=== PATIENT | female | born 2000 | race Caucasian/White ===

== ENCOUNTER → 2023-03-14 | Outpatient (CLI) | payer OTHER, SELFPAY ==
[2023-03-14 15:23] LABS: Absolute Lymphocyte Count 1.21 X10^3/uL (0.83-4.51); Absolute Neutrophil Count 4.5 X10^3/uL (2.0-7.7); Basophil# 0.02 X10^3/uL; Basophil% 0.3 % (0-1); Eosinophil# 0.07 X10^3/uL; Eosinophils% 1.1 % (0-5); Hematocrit 45.5 % (37-47); Hemoglobin 14.6 g/dL (12.0-15.0); Lymphocyte # 1.21 X10^3/ul (0.83-4.51); Lymphocyte % 19.3 % (19-41); Mean Corp Hgb Conc 32.1 g/dL (32-36); Mean Corpuscular Hgb 27.8 pg (27.0-32.0); Mean Corpuscular Volume 86.7 fL (81-99); Mean Platelet Vol. 10.1 fl (6.2-12.0); Monocyte# 0.47 X10^3/uL; Monocyte% 7.5 % (0-10); NRBC Flagged by Analyzer 0 % (0-5); Neutrophil # 4.48 X10^3/uL (2.7-7.7); Neutrophil % 71.5 % (47-70); Platelet Count 307 K/mm3 (150-450); RBC Distribution Width CV 12.6 % (11.6-14.6); RBC Distribution Width SD 39.8 fl (35.1-43.9); Red Blood Count 5.25 M/mm3 (4.2-5.4); White Blood Count 6.3 K/mm3 (4.4-11.0)
[2023-03-14 16:11] LABS: Hemoglobin A1c 4.9 % (3.8-5.6)
[2023-03-14 16:16] LABS: Cholesterol 163 mg/dL (200); High Density Lipoprotein 49 mg/dL; Rheumatoid Factor < 10.0 IU/mL (<15); T4 Free Direct 0.94 ng/dL (0.76-1.46); Thyroid Stim Hormone (TSH) 0.69 uIU/mL (0.358-3.74); Triglycerides 102 mg/dL; Very Low Density Lipoprotein 20 mg/dL (5-40)
[2023-03-17 14:08] LABS: ANTINUCLEAR ANTIBODIES DIRECT Negative (Negative)
[2023-03-17 15:07] LABS: Deamidated Gliadin IgA 9 units (0-19); Deamidated Gliadin IgG 3 units (0-19); Endomysial Antibody IgA Negative (Negative); Immunoglobulin A 261 mg/dL (87-352); t-Transglutaminase IgA <2 U/mL (0-3)
== END | disposition home or self-care (01) ==
LOC: BIMLAB 13:38
PROVIDERS: PCP Nurse Practitioner; Referring Provider Nurse Practitioner; Visit Provider Nurse Practitioner
DX: M25.50 Pain in unspecified joint (principal); Z76.89 Persons encountering health services in other specified circumstances; R63.5 Abnormal weight gain
CPT/HCPCS: 36415; 80061; 82784; 83036; 83516; 84439; 84443; 85025; 86038; 86225; 86235; 86255; 86431

== ENCOUNTER 2023-07-22 08:00 | Outpatient (RCR) | payer OTHER, SELFPAY ==
--- NOTE | 2023-03-28 09:11 | HP.PTEVAL ---
Patient's Visit Information Visit Information Visit Information: TRAVIS FLOREZ is a 22 year old F referred to Physical Therapy by YOSHI Urbina with a diagnosis of B knee pain. Date of Evaluation: 03/28/23 Physical Therapist: LINDA Fairchild Visit Plan Frequency: 1x/Week Duration: 2 Months Plan: 1X/ week for up to 8 weeks (due to pt being away at school) for B hip and knee strengthening with HEP HEP: bridges, clam shells and SLR B, Heel slides, and standing heel and toe raises Subjective Subjective: Pt has pain in B knees with the R being worse. Pt reports that since her sophomore in she played soccer and would constantly land on her knees and then in college it got worse to the point she could not bend or straighten her knees. She works at [employer] and throughout the day it would gets worse. She is at [email or web address] (studying history education). Her knees do not swell but does not know what a normal knee looks like. Stairs bother her slightly. Getting up out of a chair is ok... somedays she has to push herself up. She has no night pain while she is sleeping. She does not exercise. Her knee has given out in the past just standing but not recently. Pain R knee pain: Pain Intensity (Out of 10): 0 L knee pain: Pain Intensity (Out of 10): 0 Objective Objective: Gait: decrease stride length HEEL and TOE raises: increase pain in the front of the knee pain on the R when walking on her heels LE MMT: R hip flex 15 and L hip flex 15.5 R knee ext 16.6 and L 14.8 R knee flex 10.3 and L 12.1 R hip abd 11.8 and L 16.8 R hip ext 8.2 and L 8.6 Bridge: 3/4 normal ROM R knee AROM -2 tp 105 amd L knee -12 to 112 Balance/Special Test Scores Lower Extremity Functional Score: 57 Goals Goal 1:: I HEP Goal Time Frame: 6-8 Weeks Goal 2:: Increase B hip and knee strength (at the time of the eval: R hip flex 15 and L hip flex 15.5 R knee ext 16.6 and L 14.8 R knee flex 10.3 and L 12.1 R hip abd 11.8 and L 16.8 R hip ext 8.2 and L 8.6 Bridge: 3/4 normal ROM) Goal Time Frame: 6-8 Weeks Goal 3:: Pt to have 50% pain reduction in B knees after standing at work Goal Time Frame: 6-8 Weeks Rehabilitation Potential Rehabilitation Potential: Good Anticipated Interventions Patient/Client Instruction: Educate patient on: Condition and Plan of Care For the Purpose of:: To decrease swelling/inflammation, To increase ROM, To improve nutrient delivery to tissue, To improve muscle performance and motor function, To improve ability to perform ADL's, To increase tolerance to activity/condition/position, To improve performance and independence with ADL's, To improve ability of physical actions for home/community/work/leisure, To improve gait and locomotor functions, To improve health of tissue and To increase flexibility/ROM Therapeutic Exercise to Include: Strength training, Flexibilty training, Gait and locomotor training and Active ROM For the Purpose of:: To decrease pain, To increase ROM, To improve nutrient delivery to tissue, To improve muscle performance and motor function, To improve ability to perform ADL's, To increase tolerance to activity/condition/position, To decrease level of supervision to perform tasks, To improve ability of physical actions for home/community/work/leisure and To improve gait and locomotor functions Functional Training to Include: Gait training For the Purpose of:: To improve gait and locomotor functions Text: Thank you for the opportunity to evaluate your patient. For Medicare and Medicare HMO plans, please review the plan of care and approve it. It will need to be FAXED BACK to us at [phone] for Medicare purposes. For Medicare only, by signing this I certify the plan of care. Please let me know if there are questions or concerns regarding this plan of care. Physician Signature: Date:
--- NOTE | 2023-07-22 11:30 | HP.PTDCSUM ---
Discharge Summary D/C summary: It has been my pleasure to treat TRAVIS FLOREZ referred by YOSHI Urbina, with the diagnosis of B knee pain for a total of 7 visit(s). Discharge Date: 07/22/23 Please see the following information for a summary of their discharge status. Subjective Subjective: Pt reports a little pain Pain R knee pain: Pain Intensity (Out of 10): 3 L knee pain: Pain Intensity (Out of 10): 3 Overall Improvement % Improvement: 50 Objective Objective/Function: Pt was given a copy of the above exercises Goals Goal 1:: I HEP Goal Progress: Goal Met Goal 2:: Increase B hip and knee strength (at the time of the eval: R hip flex 15 and L hip flex 15.5 R knee ext 16.6 and L 14.8 R knee flex 10.3 and L 12.1 R hip abd 11.8 and L 16.8 R hip ext 8.2 and L 8.6 Bridge: 3/4 normal ROM) Goal 3:: Pt to have 50% pain reduction in B knees after standing at work Goal Progress: Goal Met Plan Plan: Pt was given a copy of the above exercises and she will continue with them on her own. DC PT D/C Information Discharge Comments: DC PT to HEP d/c sentence: If there are questions or concerns regarding this patient's physical therapy, please feel free to call me at [phone]. Thank you for the referral of this patient. Sincerely, Lakeisha Escobar, MPT Balance/Gait/Functional tests Balance/Special Test Scores Lower Extremity Functional Score: 60 Improvement % Improvement: 50
== END 2023-07-22 17:29 | disposition home or self-care (01) ==
LOC: PT 08:00
PROVIDERS: PCP Nurse Practitioner; Referring Provider Nurse Practitioner; Visit Provider Nurse Practitioner
DX: M25.561 Pain in right knee (principal); M25.562 Pain in left knee
CPT/HCPCS: 97110; 97161